=== PATIENT | male | born 1960 | race Caucasian/White ===

== ENCOUNTER 2017-03-01 08:02 | Day surgery (SDC) | payer OTHER ==
[~2017-03-01 08:02] MED LIST: BUPIVACAINE 0.5% W/ EPI - 10 ML VIAL ONE; LIDOCAINE MPF 2% - 5 ML (20 MG/1 ML) ONE; LIDOCAINE W/ SODIUM BICARB 0.5 ML SYR ONE; Lactated Ringers 1,000 ML PRIMARY IV ONE; MIDAZOLAM 5 MG/1 ML ONE; ceFAZolin Inj 2gm (Premix) 50 ML IV ONE; fentaNYL Inj 250 MCG/5 ML VIAL ONE
[2017-03-01 08:40] VITALS: RESP 12
[2017-03-01] MEDS ORDERED: KETOROLAC 30 MG/1 ML VIAL ONE (09:45)
[2017-03-01] MEDS ORDERED: ONDANSETRON 4 MG/2 ML VIAL ONE (09:45)
[2017-03-01] MEDS ORDERED: Lactated Ringers 1,000 ML PRIMARY IV ONE (10:03)
[2017-03-01] MEDS ORDERED: NORMAL SALINE 10 ML SYRINGE FLUSH IVP PRN (10:39)
--- NOTE | 2017-03-01 10:39 | GEN.OPNOTE ---
Operative Note Surgery Date: 03/01/17 Preoperative Diagnosis: Symptomatic right inguinal hernia. Postoperative Diagnosis: Symptomatic indirect right inguinal hernia. Procedure: Right inguinal herniorrhaphy using Marlex mesh. Surgeon: Luis Carlos He MD Anesthesia Provider: Jono Dejesus CRNA Anesthesia Type: General Estimated Blood Loss (mL): 5 Fluids: 1300 mL of crystalloid. 2 g of IV Ancef at the start of the procedure. 30 mg of IV Toradol at the end of the procedure. Pathology: No specimens. Indications: Symptomatic right inguinal hernia. Findings: Indirect right inguinal hernia. Complications: None. Operative Summary: Patient was taken to the operating room and placed on the operating table in the supine position. Following induction of adequate general anesthetic the right groin was prepped and draped in a sterile fashion. A surgical timeout was done. An incision was made over the groin and carried down through the subcutaneous tissue and Anum's fascia to the external oblique. The external oblique was split along the course of its fibers into the external ring. The external oblique was retracted. The cord was mobilized at the pubic tubercle and encircled with a [place] drain. Dissection was carried back to the internal ring. Nerves were identified and preserved throughout the course of the procedure. The floor was intact. The indirect sac was dissected free from the cord structures. It was opened. A finger was inserted. All contents were reduced. The floor was checked. A high ligation was performed. The excess sac was amputated. There was good retraction of the peritoneum through the internal ring. A piece of Marlex mesh was cut to fit the floor. It was secured superiorly and medially from the pubic tubercle with 2-0 Prolene suture. A running continuous suture was used to anchor the mesh around the pubic tubercle and along the shelving portion of Poupart's ligament to well past the internal ring. The mesh was split. The tails were wrapped around the cord at the internal ring. The upper tail was secured to the shelving portion of Poupart ligament with 2-0 Prolene. Laterally the tails were tucked under the external oblique. The upper edge of the mesh was secured to the internal oblique fascia with 2-0 Vicryl sutures. Having completed the repair the cord structures were returned to a relative anatomic position. The wound was irrigated. Hemostasis was assured. Final irrigation was 1/2% Marcaine with epinephrine which was allowed to sit in the wound for several minutes and then removed. The external oblique was closed with 2-0 Vicryl as was Anum's fascia. The skin was closed with running subcuticular 4-0 Prolene followed by Mastisol, Steri-Strips, and an appropriate dressing. The patient tolerated the entire procedure well without complication. He was taken to the recovery room in stable condition. All counts were correct.
[2017-03-01] MEDS ORDERED: ONDANSETRON 4 MG/2 ML VIAL IVP PRN (10:44)
[2017-03-01] MEDS ORDERED: oxyCODONE-ACETAMINOPHEN 5-325 TAB PO PRN (10:44)
[2017-03-01] MEDS ORDERED: Lactated Ringers 1,000 ML PRIMARY IV SCH (10:45)
[2017-03-01] MEDS ORDERED: MORPHINE SULFATE 2 MG/1 ML ONE (11:00)
[2017-03-01] MEDS: MORPHINE SULFATE 2 MG/1 ML IVP PRN ×2 (11:00→11:15)
[2017-03-01] MEDS ORDERED: oxyCODONE-ACETAMINOPHEN 5-325 TAB PO ONE (11:06)
[2017-03-01] MEDS ORDERED: diphenhydrAMINE 25 MG CAPSULE PO ONE ×2 (12:22→12:57)
[2017-03-01 13:03] VITALS: TEMP 97
== END 2017-03-01 12:25 | disposition home or self-care (01) ==
LOC: SDSC 08:02
PROVIDERS: ATTEND Surgery
DX: K40.90 Unilateral inguinal hernia, without obstruction or gangrene, not specified as recurrent (principal)
CPT/HCPCS: 49505; J0690; J1885; J2704; J3010; Q0163; J2001; J2250; J2270; J2405; J7120